=== PATIENT | female | born 1995 | race Caucasian/White ===

== ENCOUNTER 2021-06-19 16:53 | Outpatient (CLI) | payer OTHER, SELFPAY ==
--- NOTE | 2021-06-19 17:33 | XR_ITS ---
WS: [id number] Exam: XR abdomen 1V* [id number] Date/Time of Exam: 06/19/2021 5:34 PM Reason For Exam: abdominal pain, constipation, bloated abdomen No bowel obstruction or free air. Visualized organ margins appear normal. Signs of prior cholecystect talya. Moderate amount retained stool in right colon. Bony structures are intact. XR/XR abdomen 1V* [id number] IMPRESSION: 1. No acute abdominal process.
== END 2021-06-19 16:54 | disposition home or self-care (01) ==
PROVIDERS: PCP Nurse Practitioner Family; Visit Provider Nurse Practitioner Family
DX: R10.9 Unspecified abdominal pain (principal); K59.00 Constipation, unspecified; R14.0 Abdominal distension (gaseous)
CPT/HCPCS: 74018

== ENCOUNTER 2021-09-24 14:08 | Emergency (ER) | payer OTHER, SELFPAY ==
[2021-09-24 14:27] VITALS: BP 111/78; PULSE 95; RESP 18; TEMP 37.2; O2SAT 97; BMI 28.2
[2021-09-24 15:00] LABS: Urine Appearance Hazy (CLEAR); Urine Color Yellow (Yellow)
[2021-09-24 15:01] LABS: Add Urine Microscopic? YES; Bilirubin Urine Neg (Negative); Blood Urine Neg (Negative); Glucose Urine UA Norm (Normal); Ketones Urine Negative (Negative); Leukocyte Esterase Urine 2+ (Negative); Nitrate Urine Negative (Negative); Protein Urine Neg (Negative); Urobilinogen Urine Norm (Negative); pH Urine 7 (5-7)
[2021-09-24 15:02] LABS: Bacteria Urine 2+ /hpf; WBC Urine 15-25 /hpf (0-5)
[2021-09-24 15:03] LABS: Add Urine Culture? No
--- NOTE | 2021-09-24 15:44 | CTR_ITS ---
PROCEDURE INFORMATION: Exam: CT Abdomen And Pelvis Without Contrast Exam date and time: 09/24/2021 5:07 PM Age: 26 years old Clinical indication: Abdominal pain; Flank; Right lower quadrant (rlq); Additional info: Flank pain and rlq pain, PT allergic to contrast TECHNIQUE: Imaging protocol: Computed tomography of the abdomen and pelvis without contrast. Radiation optimization: All CT scans at this facility use at least one of these dose optimization techniques: automated exposure control; mA and/or kV adjustment per patient size (includes targeted exams where dose is matched to clinical indication); or iterative reconstruction. COMPARISON: CT Abdomen/Pelvis Renal [id number] 09/19/2016 3:56 AM RADIATION DOSE METRICS: Total DLP (mGy-cm): 1067.91 FINDINGS: Liver: Normal. No mass. Gallbladder and bile ducts: Interval cholecystectomy since the previous exam. Pancreas: Normal. No ductal dilation. Spleen: Normal. No splenomegaly. Adrenal glands: Normal. No mass. Kidneys and ureters: Normal. No hydronephrosis. Stomach and bowel: Unremarkable. No obstruction. No mucosal thickening. Appendix: No evidence of appendicitis. Intraperitoneal space: Unremarkable. No free air. No significant fluid collection. Vasculature: One or more calcified pelvic phleboliths. Lymph nodes: Unremarkable. No enlarged lymph nodes. Urinary bladder: Unremarkable as visualized. Reproductive: Unremarkable as visualized. Bones/joints: Unremarkable. No acute fracture. Soft tissues: Unremarkable. CT/CT kidney stone [id number] IMPRESSION: Interval cholecystectomy since the previous exam.
--- NOTE | 2021-09-24 15:45 | W.ED.ABDPA2 ---
HPI - Abdominal Pain General: Chief Complaint: Abdominal Pain Stated Complaint: abd pain Time Seen by Provider: 09/24/21 15:36 History of Present Illness: Patient comes in with right flank pain and right lower quadrant abdominal pain that radiates down into her leg. States the pain is constant, dull with episodes of sharp. States that it started 5 to 6 days ago. Associated with vomiting. Denies fever, diarrhea. Associated Symptoms: Reports nausea and vomiting; Denies dysuria and fever(s) Review of Systems Const: Denies: fever(s) or body aches Eyes: Denies: change in vision or blurry vision ENMT: Denies: throat pain or odynophagia Card: Denies: chest pain or palpitations Resp: Denies: dyspnea or productive cough GI: Reports: abdominal pain, nausea and vomiting : Reports: flank pain; Denies: dysuria Musc: Denies: neck pain or back pain Skin/Breast: Denies: rash or pruritus Neuro: Denies: headache(s) or numbness in extremities Psych: Denies: anxiety or change in appetite Endo: Denies: polyuria or excessive sweating PFSH ED PFSH: Medical History (Updated 09/24/21 @ 17:55 by Davian Sutton MD) Allergy to alpha-gal High risk medication use Immunization counseling Surgical History (Updated 08/16/21 @ 09:44 by Philip Dickson MD) H/O wrist surgery left History of cholecystectomy History of tonsillectomy and adenoidectomy Family History (Updated 08/16/21 @ 09:03 by Courtney Shafer LPN) Other Cancer Diabetes Denies family history of Rheumatoid arthritis Lupus CAD (coronary artery disease) Chronic kidney disease (CKD) Lung disease Stroke Social History (Updated 08/16/21 @ 09:05 by Courtney Shafer LPN) Smoking and tobacco status: never smoked Alcohol intake: never History of recent travel: No Physical Exam Const: COMMON NORMALS: no acute distress, patient oriented x3, healthy appearing and alert HENMT: COMMON NORMALS: normocephalic and atraumatic HEAD & SCALP: normocephalic and atraumatic Eye: COMMON NORMALS: Equal, round and reactive pupils present and EOMs intact bilaterally PUPIL: Yes Equal, round and reactive pupils present Neck/C-Spine: COMMON NORMALS: full ROM and supple Resp: COMMON NORMALS: normal respiratory effort, No retractions and No use of accessory muscles Cardio: COMMON NORMALS: regular rate and regular rhythm RATE: regular rate RHYTHM: regular rhythm GI: COMMON NORMALS: Normal to inspection, nondistended, normoactive bowel sounds present and Soft to palpation PALPATION: Yes Soft to palpation OTHER: RLQ ttp Back/Pelvis: COMMON NORMALS: thoracic and lumbar spine normal to inspection and no thoracic nor lumbar tenderness Extremity: COMMON NORMALS: normal to inspection and full ROM Neuro: COMMON NORMALS: patient oriented x3 SENSORIUM/ORIENTATION: Yes alert Psych: COMMON NORMALS: mental status grossly normal and cooperative Skin: COMMON NORMALS: no rashes or lesions noted and no wounds GENERAL SKIN EXAM: no rashes or lesions noted Course Vital Signs: Vital signs: Vital Signs Temperature 98.9 F 09/24/21 14:27 Pulse Rate 66 09/24/21 16:15 Respiratory Rate 16 09/24/21 16:15 Blood Pressure 111/75 09/24/21 16:15 Pulse Oximetry 100 09/24/21 16:15 MDM - Abdominal Pain Medical Decision Making Patient comes in with right flank pain and right lower quadrant abdominal pain that radiates down into her leg. States the pain is constant, dull with episodes of sharp. States that it started 5 to 6 days ago. Associated with vomiting. Denies fever, diarrhea. On physical exam she has right lower quadrant tenderness to palpation. She is allergic to IV contrast. Will check labs, CT renal, treat pain with IV Toradol, give IV fluids, and reassess. On reassessment I talked to the patient about the test results. Will discharge home at this time with precautions to return for worsening or changing symptoms. Lab Data : 09/24/21 16:09 09/24/21 16:09 Labs/Radiology: Radiology Impressions Abdomen/Pelvis CT 09/24/21 15:44 IMPRESSION: Interval cholecystectomy since the previous exam. Laboratory Results WBC 9.8 10^3/uL (4.0-10.0) 09/24/21 16:09 RBC 4.26 10^6/uL (4.1-5.3) 09/24/21 16:09 Hgb 11.0 g/dL (11.5-15.3) L 09/24/21 16:09 Hct 35.6 % (37.0-47.0) L 09/24/21 16:09 MCV 83.6 fl (81-99) 09/24/21 16:09 MCH 25.8 pg (28.0-34.0) L 09/24/21 16:09 MCHC 30.9 g/dL (30.0-36.0) 09/24/21 16:09 RDW 14.7 % (12.1-15.1) 09/24/21 16:09 Plt Count 340 10^3/cmm (130-400) 09/24/21 16:09 MPV 10.3 fL (7.4-10.4) 09/24/21 16:09 Neut % (Auto) 62.3 % 09/24/21 16:09 Lymph % (Auto) 29.9 % 09/24/21 16:09 [place] % (Auto) 6.5 % 09/24/21 16:09 Eos % (Auto) 0.8 % 09/24/21 16:09 Baso % (Auto) 0.2 % 09/24/21 16:09 Neut # (Auto) 6.12 10^3/uL (1.8-7.7) 09/24/21 16:09 Lymph # (Auto) 2.9 10^3/uL (0.8-4.8) 09/24/21 16:09 [place] # (Auto) 0.6 10^3/uL (0.2-0.9) 09/24/21 16:09 Eos # (Auto) 0.1 10^3/uL (0.0-0.8) 09/24/21 16:09 Baso # (Auto) 0.0 10^3/uL (0.0-0.1) 09/24/21 16:09 Nucleated RBC % (auto) 0 % 09/24/21 16:09 Nucleated RBCs # 0.0 /100WBC 09/24/21 16:09 Sodium 139 mmol/L (136-145) 09/24/21 16:09 Potassium 4.2 mmol/L (3.5-5.1) 09/24/21 16:09 Chloride 104 mmol/L (98-107) 09/24/21 16:09 Carbon Dioxide 24 mmol/L (22-29) 09/24/21 16:09 Anion Gap 15.2 (5-19) 09/24/21 16:09 BUN 7 mg/dL (6-20) 09/24/21 16:09 Creatinine 0.6 mg/dL (0.5-0.9) 09/24/21 16:09 GFR Calculation 119.9 mL/min (90-130) 09/24/21 16:09 Glucose 76 mg/dL (65-115) 09/24/21 16:09 Calculated Osmolality 285 mOsm/kg (285-295) 09/24/21 16:09 Calcium 8.9 mg/dL (8.5-10.5) 09/24/21 16:09 Total Bilirubin 0.3 mg/dL (0.15-1.2) 09/24/21 16:09 AST 13 U/L (0-32) 09/24/21 16:09 ALT 14 U/L (0-33) 09/24/21 16:09 Alkaline Phosphatase 69 IU/L (35-105) 09/24/21 16:09 Total Protein 6.6 g/dL (6.6-8.7) 09/24/21 16:09 Albumin 4.4 g/dL (3.5-5.2) 09/24/21 16:09 Globulin 2.2 g/dL (1.3-4.6) 09/24/21 16:09 HCG, Qual Negative (Negative) 09/24/21 14:40 Urine Color Yellow (Yellow) 09/24/21 14:40 Urine Appearance Hazy (CLEAR) A 09/24/21 14:40 Urine pH 7 (5-7) 09/24/21 14:40 Ur Specific [place] 1.010 (1.005-1.030) 09/24/21 14:40 Urine Protein Neg (Negative) 09/24/21 14:40 Urine Glucose (UA) Norm (Normal) 09/24/21 14:40 Urine Ketones Negative (Negative) 09/24/21 14:40 Urine Blood Neg (Negative) 09/24/21 14:40 Urine Nitrate Negative (Negative) 09/24/21 14:40 Urine Bilirubin Neg (Negative) 09/24/21 14:40 Urine Urobilinogen Norm mg/dL (Negative) 09/24/21 14:40 Ur Leukocyte Esterase 2+ (Negative) H 09/24/21 14:40 Urine RBC None /hpf (0-2) 09/24/21 14:40 Urine WBC 15-25 /hpf (0-5) H 09/24/21 14:40 Ur Squamous Epith Cells 10-15 /hpf (0-5) H 09/24/21 14:40 Amorphous Sediment Not Reportable 09/24/21 14:40 Urine Bacteria 2+ /hpf (NONE) H 09/24/21 14:40 Discharge Plan Discharge Patient Disposition: Home Clinical Impression: Abdominal pain Condition: Stable Prescriptions: No Action fluoxetine 20 mg tablet 30 mg PO DAILY 0RF prednisone 10 mg tablet See Rx Instructions PO .COMPLEX PRN (Reason: joint pain) Qty: 30 1RF Rx Instructions: take 3 tabs daily for 3days then 2 tabs daily x3days then 1 tab daily for 3 days then stop ondansetron HCl 4 mg tablet 4 mg PO Q6H Qty: 10 0RF Discharge Orders: Discharge ED (Routine); Ordered 09/24/21 Ordered By: Davian Sutton Referrals: JB BATISTA APRN [Primary Care Provider] - Patient Instructions: Abdominal Pain (ED) Coding Level of Care Code ED Certified Registered Nurse Anesthetist for Chg Fwd Exam Comprehensive
[2021-09-24] MEDS: ketorolac 30 mg/mL INJ 15 MG IVP (16:07)
[2021-09-24] MEDS: sodium chloride 0.9% 1,000 ML 999 ML IV (16:08)
[2021-09-24 16:15] VITALS: BP 111/75; PULSE 66; RESP 16; O2SAT 100
[2021-09-24 16:21] LABS: Basophils % 0.2 %; Eosinophils # 0.1 10^3/uL (0.0-0.8); Eosinophils % 0.8 %; Hematocrit 35.6 % (37.0-47.0); Lymphocytes # 2.9 10^3/uL (0.8-4.8); Lymphocytes % 29.9 %; Mean Corpuscular HGB Conc 30.9 g/dL (30.0-36.0); Mean Corpuscular Hemoglobin 25.8 pg (28.0-34.0); Mean Corpuscular Volume 83.6 fl (81-99); Mean Platelet Volume 10.3 fL (7.4-10.4); Monocytes # 0.6 10^3/uL (0.2-0.9); Monocytes % 6.5 %; Neutrophils # 6.12 10^3/uL (1.8-7.7); Neutrophils % 62.3 %; Nucleated Red Blood Cells % 0 %; Platelet Count 340 10^3/cmm (130-400); Red Blood Count 4.26 10^6/uL (4.1-5.3); Red Cell Distribution Width 14.7 % (12.1-15.1); White Blood Count 9.8 10^3/uL (4.0-10.0)
[2021-09-24 16:37] LABS: Alanine Aminotransferase 14 U/L (0-33); Albumin Level 4.4 g/dL (3.5-5.2); Alkaline Phosphatase 69 IU/L (35-105); Aspartate Amino Transferase 13 U/L (0-32); Blood Urea Nitrogen 7 mg/dL (6-20); Calcium 8.9 mg/dL (8.5-10.5); Carbon Dioxide 24 mmol/L (22-29); Chloride 104 mmol/L (98-107); Creatinine Clr Calc Pharmacy 149.7037; Globulin 2.2 g/dL (1.3-4.6); Glomerular Filtration Rate 119.9 mL/min (90-130); Glucose 76 mg/dL (65-115); Osmolality Calculated 285 mOsm/kg (285-295); Sodium 139 mmol/L (136-145); Total Bilirubin 0.3 mg/dL (0.15-1.2); Total Protein 6.6 g/dL (6.6-8.7)
[2021-09-24 16:39] LABS: HCG Qualitative Urine. Negative (Negative)
[2021-09-24 17:14] LABS: Anion Gap 15.2 (5-19); Potassium 4.2 mmol/L (3.5-5.1)
[2021-09-24 18:33] VITALS: BP 110/64; O2SAT 100
== END 2021-09-24 18:34 | disposition home or self-care (01) ==
PROVIDERS: Emergency Provider Emergency Medicine; PCP Nurse Practitioner Family
DX: R10.9 Unspecified abdominal pain (principal)
CPT/HCPCS: 74176; 80053; 81001; 81025; 85025; 96361; 96374; 99285; J1885; J7030

== ENCOUNTER 2022-03-06 16:28 | Outpatient (CLI) | payer OTHER, SELFPAY ==
--- NOTE | 2022-03-06 16:58 | XRR_ITS ---
PROCEDURE INFORMATION: Exam: XR Abdomen Exam date and time: 03/06/2022 5:13 PM Age: 26 years old Clinical indication: Nausea and vomiting; Abdominal pain; Generalized; Prior surgery; Surgery type: Gb; Additional info: Abdominal pain, nausea, vomiting TECHNIQUE: Imaging protocol: Radiologic exam of the abdomen. Views: 2 Views. Upright and supine views. COMPARISON: CT kidney stone [id number] 09/24/2021 5:07 PM FINDINGS: Gastrointestinal tract: Normal. No bowel dilation. Metallic surgical clips right upper quadrant consistent with cholecystectomy Intraperitoneal space: Normal. No free air. Bones/joints: Unremarkable for age. XR/XR abdomen min 2V [id number] IMPRESSION: 1. No acute GI abnormality. 2. Status post cholecystectomy
[2022-03-06 17:33] LABS: Basophils % 0.3 %; Eosinophils # 0.1 10^3/uL (0.0-0.8); Eosinophils % 0.7 %; Hematocrit 34.3 % (37.0-47.0); Hemoglobin 10.8 g/dL (11.5-15.3); Lymphocytes % 34.9 %; Mean Corpuscular HGB Conc 31.5 g/dL (30.0-36.0); Mean Corpuscular Hemoglobin 25.9 pg (28.0-34.0); Mean Corpuscular Volume 82.3 fl (81-99); Mean Platelet Volume 10.4 fL (7.4-10.4); Monocytes # 0.7 10^3/uL (0.2-0.9); Monocytes % 6.1 %; Neutrophils # 6.56 10^3/uL (1.8-7.7); Neutrophils % 57.6 %; Nucleated Red Blood Cells % 0 %; Platelet Count 336 10^3/cmm (130-400); Red Blood Count 4.17 10^6/uL (4.1-5.3); Red Cell Distribution Width 14.7 % (12.1-15.1); White Blood Count 11.4 10^3/uL (4.0-10.0)
[2022-03-06 17:53] LABS: Alanine Aminotransferase 19 U/L (0-33); Albumin Level 4.4 g/dL (3.5-5.2); Alkaline Phosphatase 72 U/L (35-105); Anion Gap 14.6 (5-19); Aspartate Amino Transferase 11 U/L (0-32); Blood Urea Nitrogen 8 mg/dL (6-20); Calcium 9.9 mg/dL (8.5-10.5); Carbon Dioxide 27 mmol/L (22-29); Chloride 105 mmol/L (98-107); Globulin 2.8 g/dL (1.3-4.6); Glomerular Filtration Rate 119.9 mL/min (90-130); Glucose 84 mg/dL (65-115); Osmolality Calculated 294 mOsm/kg (285-295); Potassium 3.6 mmol/L (3.5-5.1); Sodium 143 mmol/L (136-145); Total Bilirubin 0.2 mg/dL (0.15-1.2); Total Protein 7.2 g/dL (6.6-8.7)
== END 2022-03-06 16:29 | disposition home or self-care (01) ==
PROVIDERS: PCP Nurse Practitioner Family; Visit Provider Nurse Practitioner Family
DX: R10.9 Unspecified abdominal pain (principal); R11.2 Nausea with vomiting, unspecified; Z90.49 Acquired absence of other specified parts of digestive tract
CPT/HCPCS: 36415; 74019; 80053; 85025

== ENCOUNTER 2022-03-08 17:57 | Emergency (ER) | payer OTHER, SELFPAY ==
[2022-03-08 18:14] VITALS: BP 142/86; PULSE 80; RESP 18; TEMP 37.2; O2SAT 100; BMI 27.4
--- NOTE | 2022-03-08 19:23 | W.ED.ABDPA2 ---
HPI - Abdominal Pain General: Chief Complaint: Abdominal Pain Stated Complaint: abd pain Time Seen by Provider: 03/08/22 19:19 Source: patient Mode of arrival: ambulatory History of Present Illness: 26-year-old female presents emergency room complaining of intermittent right upper quadrant pain for the last 6 months or morning. She been seen for it several times persistently having pain states has been getting worse the last several days.'s associated with nausea or vomiting. She denies any medic easy melena hematemesis or coffee-ground emesis no dysuria urgency or frequency or hematuria. She previously had a cholecystectomy he states it is began after the cholecystectomy. Patient was seen in September 2021 at this ER with complaints of abdominal pain at that point he had a CT which was unremarkable. she has not noticed anything that exacerbates or relieves the pain. MD elicited complaint: abdominal pain Pertinent past history: other (Previous cholecystectomy) Onset (ago): month(s) (6) Pain Consistency: intermittent Location: RUQ Severity: moderate Quality: cramping Radiation: none Migration to: no migration Exacerbating factors: nothing Relieving factors: nothing Associated Symptoms: Reports GI cramping, poor appetite and vomiting; Denies anorexia, belching, bloating, change in bowel habits, change in stool character, chills, coffee ground emesis, constipation, diarrhea, dyspepsia, dysuria, excessive flatus, fever(s), heartburn, hematochezia, hematuria, hematemesis, fecal incontinence, loose stools, melena, nausea and syncope Review of Systems Const: Denies: fever(s), chills, fatigue or malaise ENMT: Denies: throat pain, ear or mastoid pain, nasal discharge or nasal congestion Card: Denies: chest pain, palpitations or syncope Resp: Denies: dyspnea, productive cough or non-productive cough GI: Reports: abdominal pain, vomiting and GI cramping; Denies: nausea, hematemesis, coffee ground emesis, heartburn, diarrhea, constipation, bloating, belching, excessive flatus, fecal incontinence, change in bowel habits, change in stool character, hematochezia or melena : Denies: dysuria or hematuria Skin/Breast: Denies: rash or pruritus PFS ED PFSH: Medical History (Updated 03/08/22 @ 20:56 by Dimitrios Hernandez DO) Allergy to alpha-gal High risk medication use Immunization counseling Surgical History (Updated 08/16/21 @ 09:44 by Philip Dickson MD) H/O wrist surgery left History of cholecystectomy History of tonsillectomy and adenoidectomy Family History (Updated 08/16/21 @ 09:03 by Courtney Shafer LPN) Other Cancer Diabetes Denies family history of Rheumatoid arthritis Lupus CAD (coronary artery disease) Chronic kidney disease (CKD) Lung disease Stroke Social History (Updated 08/16/21 @ 09:05 by Courtney Shafer LPN) Smoking and tobacco status: never smoked Alcohol intake: never History of recent travel: No Physical Exam Const: COMMON NORMALS: no acute distress GENERAL APPEARANCE: cooperative and comfortable ORIENTATION/CONSCIOUSNESS: Yes awake, Yes oriented to person, Yes oriented to place and Yes oriented to time HENMT: COMMON NORMALS: normocephalic, atraumatic, hearing grossly normal bilaterally, external ears normal, EAC's normal, TM's normal bilaterally, Normal nasal mucous membranes and turbinates present, moist oral mucous membranes and oropharynx normal HEAD & SCALP: normocephalic and atraumatic NOSE: Normal nasal mucous membranes and turbinates present EXTERNAL EAR: Yes external ears normal EXTERNAL AUDITORY CANAL: EAC's normal TYMPANIC MEMBRANE: TM's normal bilaterally Eye: COMMON NORMALS: Equal, round and reactive pupils present, EOMs intact bilaterally, conjunctivae normal and no scleral icterus CONJUNCTIVA: Yes conjunctivae normal PUPIL: Yes Equal, round and reactive pupils present Neck/C-Spine: COMMON NORMALS: full ROM, no lymphadenopathy, supple and no JVD Lymph: LYMPHATIC: no lymphadenopathy noted and no lymphedema noted Resp: COMMON NORMALS: normal respiratory effort, No retractions, No use of accessory muscles and clear to auscultation bilaterally AUSCULTATION: clear to auscultation bilaterally Cardio: COMMON NORMALS: no JVD, regular rate, regular rhythm and No murmurs present (Cardio) RATE: regular rate RHYTHM: regular rhythm GI: COMMON NORMALS: Soft to palpation and No hepatosplenomegaly present AUSCULTATION: Yes normoactive bowel sounds PALPATION: Yes Soft to palpation, No Tenderness to palpation present (GI), No Guarding due to palpation present (GI) and Yes No hepatosplenomegaly present Extremity: COMMON NORMALS: normal to inspection, capillary refill normal, no clubbing, cyanosis or edema, no calf tenderness and no pedal edema Neuro: SENSORIUM/ORIENTATION: Yes oriented to person, Yes oriented to place and Yes oriented to time Skin: COMMON NORMALS: no rashes or lesions noted GENERAL SKIN EXAM: no rashes or lesions noted Course Vital Signs: Vital signs: Vital Signs Temperature 99 F 03/08/22 18:14 Pulse Rate 78 03/08/22 20:35 Respiratory Rate 16 03/08/22 20:35 Blood Pressure 121/83 03/08/22 20:35 Pulse Oximetry 99 03/08/22 20:35 Oxygen Delivery Me thod 03/08/22 20:35 MDM - Abdominal Pain Medical Decision Making Exam and labs unremarkable. Patient may benefit from further evaluation on outpatient basis with endoscopy or even possible HIDA scan. Promethazine to use as needed also start omeprazole 20 mg p.o. daily follow-up with primary care return is further problems. No emergent condition found at this time. No evidence of acute appendicitis cholelithiasis bowel obstruction or ongoing pelvic issues. Medical Records I reviewed the patient's medical records. Lab Data I reviewed the patient's lab results. 03/08/22 18:59 03/08/22 18:59 Labs/Radiology: Laboratory Results WBC 10.9 10^3/uL (4.0-10.0) H 03/08/22 18:59 RBC 4.47 10^6/uL (4.1-5.3) 03/08/22 18:59 Hgb 11.3 g/dL (11.5-15.3) L 03/08/22 18:59 Hct 36.8 % (37.0-47.0) L 03/08/22 18:59 MCV 82.3 fl (81-99) 03/08/22 18:59 MCH 25.3 pg (28.0-34.0) L 03/08/22 18:59 MCHC 30.7 g/dL (30.0-36.0) 03/08/22 18:59 RDW 14.7 % (12.1-15.1) 03/08/22 18:59 Plt Count 343 10^3/cmm (130-400) 03/08/22 18:59 MPV 10.0 fL (7.4-10.4) 03/08/22 18:59 Neut % (Auto) 61.3 % 03/08/22 18:59 Lymph % (Auto) 32.0 % 03/08/22 18:59 [place] % (Auto) 5.0 % 03/08/22 18:59 Eos % (Auto) 1.1 % 03/08/22 18:59 Baso % (Auto) 0.2 % 03/08/22 18:59 Neut # (Auto) 6.68 10^3/uL (1.8-7.7) 03/08/22 18:59 Lymph # (Auto) 3.5 10^3/uL (0.8-4.8) 03/08/22 18:59 [place] # (Auto) 0.5 10^3/uL (0.2-0.9) 03/08/22 18:59 Eos # (Auto) 0.1 10^3/uL (0.0-0.8) 03/08/22 18:59 Baso # (Auto) 0.0 10^3/uL (0.0-0.1) 03/08/22 18:59 Nucleated RBC % (auto) 0 % 03/08/22 18:59 Nucleated RBCs # 0.0 /100WBC 03/08/22 18:59 Sodium 140 mmol/L (136-145) 03/08/22 18:59 Potassium 3.4 mmol/L (3.5-5.1) L 03/08/22 18:59 Chloride 105 mmol/L (98-107) 03/08/22 18:59 Carbon Dioxide 24 mmol/L (22-29) 03/08/22 18:59 Anion Gap 14.4 (5-19) 03/08/22 18:59 BUN 6 mg/dL (6-20) 03/08/22 18:59 Creatinine 0.6 mg/dL (0.5-0.9) 03/08/22 18:59 GFR Calculation 119.9 mL/min (90-130) 03/08/22 18:59 Glucose 84 mg/dL (65-115) 03/08/22 18:59 Calculated Osmolality 287 mOsm/kg (285-295) 03/08/22 18:59 Calcium 9.3 mg/dL (8.5-10.5) 03/08/22 18:59 Total Bilirubin 0.3 mg/dL (0.15-1.2) 03/08/22 18:59 AST 13 U/L (0-32) 03/08/22 18:59 ALT 20 U/L (0-33) 03/08/22 18:59 Alkaline Phosphatase 75 U/L (35-105) 03/08/22 18:59 Total Protein 7.7 g/dL (6.6-8.7) 03/08/22 18:59 Albumin 4.6 g/dL (3.5-5.2) 03/08/22 18:59 Globulin 3.1 g/dL (1.3-4.6) 03/08/22 18:59 Lipase 18 U/L (13-60) 03/08/22 18:59 HCG, Qual Negative (Negative) 03/08/22 18:59 Urine Color Yellow (Yellow) 03/08/22 19:49 Urine Appearance Hazy (CLEAR) A 03/08/22 19:49 Urine pH 6 (5-7) 03/08/22 19:49 Ur Specific [place] 1.020 (1.005-1.030) 03/08/22 19:49 Urine Protein Neg (Negative) 03/08/22 19:49 Urine Glucose (UA) Norm (Normal) 03/08/22 19:49 Urine Ketones Negative (Negative) 03/08/22 19:49 Urine Blood 2+ (Negative) H 03/08/22 19:49 Urine Nitrate Negative (Negative) 03/08/22 19:49 Urine Bilirubin Neg (Negative) 03/08/22 19:49 Urine Urobilinogen Norm mg/dL (Negative) 03/08/22 19:49 Ur Leukocyte Esterase 1+ (Negative) H 03/08/22 19:49 Urine RBC 0-4 /hpf (0-2) H 03/08/22 19:49 Urine WBC None /hpf (0-5) 03/08/22 19:49 Ur Squamous Epith Cells 0-4 /hpf (0-5) H 03/08/22 19:49 Amorphous Sediment Not Reportable 03/08/22 19:49 Urine Bacteria 1+ /hpf (NONE) H 03/08/22 19:49 Discharge Plan Discharge Patient Disposition: Home Clinical Impression: Abdominal pain Condition: Stable Prescriptions: New promethazine 25 mg tablet 25 mg PO Q6H PRN (Reason: nausea and vomiting) Qty: 20 0RF No Action fluoxetine 20 mg tablet 30 mg PO DAILY prednisone 10 mg tablet See Rx Instructions PO .COMPLEX PRN (Reason: joint pain) Qty: 30 1RF Rx Instructions: take 3 tabs daily for 3days then 2 tabs daily x3days then 1 tab daily for 3 days then stop ondansetron HCl 4 mg tablet 4 mg PO Q6H Qty: 10 0RF Cipro 250 mg tablet 250 mg PO Q12H Qty: 6 0RF Discharge Orders: Discharge ED (Routine); Ordered 03/08/22 Ordered By: Dimitrios Hernandez Referrals: JB BATISTA APRN [Primary Care Provider] - Discharge Diet: As Directed Discharge Activity: Increase activity as tolerated Patient Instructions: Abdominal Pain (ED), Opioid Safety, Pain Management Activity Restrictions/Additional Instructions: He was seen for chronic abdominal pain. Your labs did not have any significant abnormalities. Would recommend that you follow-up with your primary care doctor to evaluate for sphincter of Oddi disease. Coding Level of Care Code ED Recreational Specialist for [facility]
[2022-03-08 19:25] LABS: Basophils % 0.2 %; Eosinophils # 0.1 10^3/uL (0.0-0.8); Eosinophils % 1.1 %; Hematocrit 36.8 % (37.0-47.0); Hemoglobin 11.3 g/dL (11.5-15.3); Lymphocytes # 3.5 10^3/uL (0.8-4.8); Mean Corpuscular HGB Conc 30.7 g/dL (30.0-36.0); Mean Corpuscular Hemoglobin 25.3 pg (28.0-34.0); Mean Corpuscular Volume 82.3 fl (81-99); Monocytes # 0.5 10^3/uL (0.2-0.9); Neutrophils # 6.68 10^3/uL (1.8-7.7); Neutrophils % 61.3 %; Nucleated Red Blood Cells % 0 %; Platelet Count 343 10^3/cmm (130-400); Red Blood Count 4.47 10^6/uL (4.1-5.3); Red Cell Distribution Width 14.7 % (12.1-15.1); White Blood Count 10.9 10^3/uL (4.0-10.0)
[2022-03-08 19:46] LABS: HCG, Serum Qual Negative (Negative)
[2022-03-08 19:54] LABS: Alanine Aminotransferase 20 U/L (0-33); Albumin Level 4.6 g/dL (3.5-5.2); Alkaline Phosphatase 75 U/L (35-105); Anion Gap 14.4 (5-19); Aspartate Amino Transferase 13 U/L (0-32); Blood Urea Nitrogen 6 mg/dL (6-20); Calcium 9.3 mg/dL (8.5-10.5); Carbon Dioxide 24 mmol/L (22-29); Chloride 105 mmol/L (98-107); Creatinine Clr Calc Pharmacy 147.6867; Globulin 3.1 g/dL (1.3-4.6); Glomerular Filtration Rate 119.9 mL/min (90-130); Glucose 84 mg/dL (65-115); Lipase 18 U/L (13-60); Osmolality Calculated 287 mOsm/kg (285-295); Potassium 3.4 mmol/L (3.5-5.1); Sodium 140 mmol/L (136-145); Total Bilirubin 0.3 mg/dL (0.15-1.2); Total Protein 7.7 g/dL (6.6-8.7)
[2022-03-08 20:25] LABS: Add Urine Culture? No; Add Urine Microscopic? YES; Bacteria Urine 1+ /hpf; Bilirubin Urine Neg (Negative); Blood Urine 2+ (Negative); Glucose Urine UA Norm (Normal); Ketones Urine Negative (Negative); Leukocyte Esterase Urine 1+ (Negative); Nitrate Urine Negative (Negative); Protein Urine Neg (Negative); RBC Urine 0-4 /hpf (0-2); Squamous Epithelial Cell Urine 0-4 /hpf (0-5); Urine Appearance Hazy (CLEAR); Urine Color Yellow (Yellow); Urobilinogen Urine Norm (Negative); pH Urine 6 (5-7)
[2022-03-08 20:35] VITALS: BP 121/83; PULSE 78; RESP 16; O2SAT 99
== END 2022-03-08 21:15 | disposition home or self-care (01) ==
PROVIDERS: Physician Assistant; Emergency Provider Family Medicine; PCP Nurse Practitioner Family
DX: R10.9 Unspecified abdominal pain (principal)
CPT/HCPCS: 36415; 80053; 81001; 83690; 84703; 85025; 99283

== ENCOUNTER 2022-03-14 16:49 | Outpatient (CLI) | payer OTHER, SELFPAY ==
[2022-03-14 17:16] LABS: Add Urine Microscopic? NO; Charge for UA Resulting for Rev
[2022-03-14 18:05] LABS: Bilirubin Urine Neg (Negative); Blood Urine Neg (Negative); Glucose Urine UA Norm (Normal); Ketones Urine Negative (Negative); Leukocyte Esterase Urine Negative (Negative); Nitrate Urine Negative (Negative); Protein Urine Neg (Negative); Specific Gravity, Urine 1.025 (1.005-1.030); Urine Appearance Clear (CLEAR); Urine Color Yellow (Yellow); Urobilinogen Urine Norm (Negative); pH Urine 6 (5-7)
== END 2022-03-14 16:50 | disposition home or self-care (01) ==
PROVIDERS: PCP Nurse Practitioner Family; Visit Provider Nurse Practitioner Family
DX: R82.90 Unspecified abnormal findings in urine (principal)
CPT/HCPCS: 36415; 81003; 87086

== ENCOUNTER 2022-10-23 23:13 | Emergency (ER) | payer OTHER, SELFPAY ==
[2022-10-23 23:18] VITALS: BP 141/94; PULSE 101; RESP 17; TEMP 36.8; O2SAT 97; BMI 27.1
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
[2022-10-24] MEDS: acetaminophen 500 mg Tablet 1000 MG PO (00:08)
[2022-10-24 01:01] VITALS: BP 141/94; PULSE 101; RESP 17; TEMP 36.8; O2SAT 97
== END 2022-10-24 01:02 | disposition home or self-care (01) ==
PROVIDERS: Emergency Provider Nurse Practitioner Family; PCP Nurse Practitioner Family
DX: S43.101A Unspecified dislocation of right acromioclavicular joint, initial encounter (principal); S40.021A Contusion of right upper arm, initial encounter; Y04.2XXA Assault by strike against or bumped into by another person, initial encounter; Y04.1XXA Assault by human bite, initial encounter; Y07.47 Parental sibling, perpetrator of maltreatment and neglect
CPT/HCPCS: 70150; 73030; 99283

== ENCOUNTER → 2022-11-26 16:13 | Outpatient (BNVA) | payer OTHER, SELFPAY | PROVIDERS: PCP Nurse Practitioner Family; Visit Provider Podiatrist Foot & Ankle Surgery | DX: S92.354A Nondisplaced fracture of fifth metatarsal bone, right foot, initial encounter for closed fracture; X50.9XXA Other and unspecified overexertion or strenuous movements or postures, initial encounter | CPT/HCPCS: 73630 ==

== ENCOUNTER → 2022-12-10 15:23 | Outpatient (BNVA) | payer OTHER, SELFPAY | PROVIDERS: PCP Nurse Practitioner Family; Visit Provider Podiatrist Foot & Ankle Surgery | DX: S90.31XA Contusion of right foot, initial encounter; M65.9 Synovitis and tenosynovitis, unspecified; W19.XXXA Unspecified fall, initial encounter; Y92.511 Restaurant or cafe as the place of occurrence of the external cause | CPT/HCPCS: 73630 ==

== ENCOUNTER 2022-12-10 16:01 | Outpatient (CLI) | payer OTHER, SELFPAY | END 2022-12-10 16:02 | disposition home or self-care (01) | LOC: SPT 16:02 | PROVIDERS: PCP Nurse Practitioner Family; Visit Provider Podiatrist Foot & Ankle Surgery | DX: Z46.89 Encounter for fitting and adjustment of other specified devices (principal); S99.929D Unspecified injury of unspecified foot, subsequent encounter; S90.31XD Contusion of right foot, subsequent encounter; X58.XXXD Exposure to other specified factors, subsequent encounter | CPT/HCPCS: 97760; L1902 ==

== ENCOUNTER → 2022-12-18 09:04 | Outpatient (BNVA) | payer OTHER, SELFPAY | PROVIDERS: PCP Nurse Practitioner Family; Visit Provider Student in an Organized Health Care Education/Training Program | DX: S49.91XA Unspecified injury of right shoulder and upper arm, initial encounter; Y04.2XXA Assault by strike against or bumped into by another person, initial encounter; X58.XXXA Exposure to other specified factors, initial encounter | CPT/HCPCS: 73030 ==

== ENCOUNTER 2023-01-02 07:48 | Outpatient (CLI) | payer OTHER, SELFPAY ==
--- NOTE | 2023-01-02 08:00 | MR_ITS ---
WS: [id number] MRI BRAIN WITHOUT CONTRAST HISTORY: G43.711 - Chronic migraine without aura, intractable, wit... COMPARISON: None available. TECHNIQUE: Diffusion imaging, multiplanar T1, T2 and FLAIR imaging obtained. No evidence for acute infarct or hemorrhage. Garcia-white matter differentiation is normal. No remote or acute infarcts are volume loss. Normal temporal and hippocampal formations. Ventricles and extra-axial spaces are normal. No inferior displacement of cerebellar tonsils. The sella turcica and pituitary gland are unremarkabl e. Dural venous sinuses and [place] of [place] demonstrate no abnormality on this unenhanced studies. Paranasal sinuses: Clear. Mastoid air cells: Normal. Calvarium and scalp: Intact. IMPRESSION: 1. Unremarkable noncontrast MRI brain. No prior infarct or significant microvascular disease. 2. Normal temporal and hippocampal formations. 3. Normal ventricles.
== END 2023-01-02 07:49 | disposition home or self-care (01) ==
LOC: RAD 07:48
PROVIDERS: Visit Provider Specialist
DX: G43.711 Chronic migraine without aura, intractable, with status migrainosus (principal); F07.81 Postconcussional syndrome
CPT/HCPCS: 70551

== ENCOUNTER 2023-01-17 12:28 | Outpatient (RCR) | payer OTHER, SELFPAY | END 2023-01-31 23:59 | disposition home or self-care (01) | LOC: SPT 12:28 | PROVIDERS: PCP Nurse Practitioner Family; Visit Provider Student in an Organized Health Care Education/Training Program | DX: M25.511 Pain in right shoulder (principal) | CPT/HCPCS: 97110; 97161 ==

== ENCOUNTER 2023-02-06 10:01 | Outpatient (CLI) | payer OTHER, SELFPAY ==
--- NOTE | 2023-02-06 10:15 | MR_ITS ---
WS: [id number] MRI RIGHT SHOULDER NONCONTRAST TECHNIQUE: Sagittal T2, coronal T1, T2 and proton density imaging. Axial gradient PDE imaging. CLINICAL INFORMATION: right shoulder injury COMPARISON: None. FINDINGS: Mild degenerative edema at the AC joint. Moderate downsloping acromion with slight impingement distal supraspinatus. Subacromial spurring. Trace subacromial fluid. Impingement on the distal supraspinatu s with tendinopathy. Normal infraspinatus. Normal teres minor. Thinning of the subscapularis tendon with increased signal either due to tendinopathy or intrasubstance partial tear. A few prominent lymph nodes in the RIGHT a xilla likely reactive. Normal biceps tendon the bicipital groove. Normal bone marrow signal in the humerus and glenoid. Norm al visualized labrum. Biceps labral anchor appears intact. Intra-articular biceps tendon appears inta ct. IMPRESSION: 1. Mild edema at the AC joint with a moderate downsloping the acromion. Subacromial spurring with im pingement of distal supraspinatus. 2. Tendinopathy distal supraspinatus. 3. Thinning of the subscapularis tendon with increased signal either due to tendinopathy or intrasub stance partial tear. 4. Biceps tendon appears intact within the bicipital groove. 5. No other suspicious findings.
== END 2023-02-06 10:02 | disposition home or self-care (01) ==
LOC: RAD 10:02
PROVIDERS: PCP Nurse Practitioner Family; Visit Provider Student in an Organized Health Care Education/Training Program
DX: S49.90XA Unspecified injury of shoulder and upper arm, unspecified arm, initial encounter (principal); X58.XXXA Exposure to other specified factors, initial encounter; M75.41 Impingement syndrome of right shoulder; M67.813 Other specified disorders of tendon, right shoulder
CPT/HCPCS: 73221

== ENCOUNTER → 2023-05-01 15:05 | Outpatient (BNVA) | payer OTHER, MEDICAID, SELFPAY | PROVIDERS: PCP Nurse Practitioner Family; Visit Provider Podiatrist Foot & Ankle Surgery | DX: M25.871 Other specified joint disorders, right ankle and foot | CPT/HCPCS: 73630 ==

== ENCOUNTER → 2023-05-14 07:36 | Outpatient (BNVA) | payer OTHER, MEDICAID, SELFPAY | PROVIDERS: PCP Nurse Practitioner Family; Visit Provider Podiatrist Foot & Ankle Surgery | DX: M25.871 Other specified joint disorders, right ankle and foot (principal) | CPT/HCPCS: 73630 ==

== ENCOUNTER → 2023-05-28 07:22 | Outpatient (BNVA) | payer OTHER, MEDICAID, SELFPAY | PROVIDERS: PCP Nurse Practitioner Family; Visit Provider Podiatrist Foot & Ankle Surgery | DX: M25.871 Other specified joint disorders, right ankle and foot (principal) | CPT/HCPCS: 73630 ==

== ENCOUNTER → 2023-08-06 07:54 | Outpatient (BNVA) | payer OTHER, SELFPAY | PROVIDERS: PCP Nurse Practitioner Family; Visit Provider Student in an Organized Health Care Education/Training Program | DX: M54.2 Cervicalgia; M67.441 Ganglion, right hand | CPT/HCPCS: 73110 ==

== ENCOUNTER 2023-08-30 09:17 | Outpatient (CLI) | payer OTHER, SELFPAY ==
--- NOTE | 2023-08-30 09:30 | MR_ITS ---
WS: [id number] MRI CERVICAL SPINE NONCONTRAST HISTORY: R20.0 - Anesthesia of skin COMPARISON: None available. Technique: Multiplanar, multisequence noncontrast imaging of the cervical spine. Normal cervical alignment with no compression fracture or significant disc space narrowing. Signal within the cervical cord is normal. Visualized posterior fossa is unremarkable. Craniocervical junction, C1 and C2 relationship, odontoid process and soft tissues are normal. C2-C3: Proximal RIGHT vertebral osteophyte. No high-grade stenosis. C3-C4: Small RIGHT vertebral osteophytes. No significant stenosis. C4-C5: Normal. C5-C6: Normal. C6-C7: Normal. C7-T1: Normal. Paraspinal soft tissue are normal. MR/MR cervical spin wo con* [id number] IMPRESSION: 1. No high-grade central or foraminal stenosis. 2. Small vertebral body osteophytes on the RIGHT at C2-3 and C3-4 without sign ificant stenosis.
== END 2023-08-30 09:18 | disposition home or self-care (01) ==
LOC: RAD 09:18
PROVIDERS: PCP Nurse Practitioner Family; Visit Provider Specialist
DX: R20.0 Anesthesia of skin (principal); M25.78 Osteophyte, vertebrae
CPT/HCPCS: 72141

== ENCOUNTER 2023-09-12 09:07 | Day surgery (SDC) | payer OTHER, SELFPAY ==
[2023-09-12 09:24] VITALS: BP 117/79; PULSE 78; RESP 17; TEMP 36.9; O2SAT 97; BMI 24.3
[2023-09-12] MEDS: scopolamine 1.5 Patch 1 PATCH TRANSDERMA (09:41)
[2023-09-12] MEDS: ketorolac 30 mg/mL INJ IVP (09:41)
[2023-09-12] MEDS: acetaminophen 1,000 MG/100 ML PIGGYBACK 400 MG IV (09:41)
--- NOTE | 2023-09-12 09:55 | ANES.PREANE2 ---
Pre-Anesthetic Assessment Height/Weight: Height 1.7 m Weight 70.307 kg Temp Pulse Resp BP Pulse Ox O2 Del Method 98.5 F 78 17 117/79 97 Room Air 09/12/23 09:24 09/12/23 09:24 09/12/23 09:24 09/12/23 09:24 09/12/23 09:24 09/12/23 09:25 Operation Date: 09/12/23 10:50 Proposed Procedures p right dorsal hand ganglion cyst excision(Right) - Vishal Zavala DO Last intake: Intake Last Liquid Date 09/11/23 Last Liquid Time 22:30 Last Solid Date 09/11/23 Last Solid Time 20:00 Exam alert, oriented x 3, clear to auscultation bilaterally and regular rate & rhythm Airway Submandibular: within normal limits Cervical ROM: within normal limits Mallampati: Class I Pulmonary None reported CV/HEM None reported None reported Hepatic None reported GI None reported Metabolic None reported Musc/skel None reported Anesthetic Plan ASA status: 1 Anesthesia: MAC Risk of > 500 ml blood loss (7ml/kg in children): No Medications/Allergies Home Medications Medication Instructions Recorded Confirmed Last Taken Type amitriptyline 25 mg tablet 25 mg PO DAILY #30 tabs 12/04/22 09/11/23 09/04/23 Rx desvenlafaxine 50 mg 100 mg PO DAILY 12/04/22 09/11/23 09/10/23 History tablet,extended release 24 hr ASO to right #1 ea 12/10/22 09/03/23 Unknown Rx alprazolam 0.5 mg tablet 0.5 mg PO PRN PRN Anxiety 01/17/23 09/12/23 09/12/23 History Allergies Allergy/AdvReac Type Severity Reaction Status Date / Time Alpha-Gal Allergy ALGY-Anaphy Verified 09/11/23 12:43 (Stfuancwz-Mbbfj-0,3-Gala laxis [facility] Anesthesia Medical History Immunization counseling High risk medication use Allergy to alpha-gal Surgical History History of tonsillectomy and adenoidectomy H/O wrist surgery left History of cholecystectomy Family History Other Cancer Diabetes Denies family history of Rheumatoid arthritis Lupus CAD (coronary artery disease) Chronic kidney disease (CKD) Lung disease Stroke Social History Smoking and tobacco/nicotine status: unknown if used tobacco/nicotine Alcohol intake: never Data Anesthesia Cardiac Studies: No Data to Display
[2023-09-12] MEDS: sodium chloride 0.9% 1,000 ML 30 ML IV (10:15)
--- NOTE | 2023-09-12 10:47 | W.PM.OPSFHP ---
Same Day Surgery H&P Indication for Procedure/HPI DATE OF PROCEDURE: September 12, 2023 CHIEF COMPLAINT/INDICATIONFOR SURGICAL PROCEDURE: Right dorsal hand/wrist ganglion cyst PREOP DIAGNOSIS: Right dorsal hand/wrist ganglion cyst PLANNED PROCEDURE: Operation Date: 09/12/23 10:50 Proposed Procedures p right dorsal hand ganglion cyst excision(Right) - Vishal Zavala DO Medications/Allergies* Home Medications Medication Instructions Recorded Confirmed Type desvenlafaxine 50 mg 100 mg PO DAILY 12/04/22 09/11/23 History tablet,extended release 24 hr alprazolam 0.5 mg tablet 0.5 mg PO PRN PRN Anxiety 01/17/23 09/12/23 History Allergies/Adverse Reactions Allergy/AdvReac Type Severity Reaction Status Date / Time Alpha-Gal Allergy ALGY-Anaphy Verified 09/11/23 12:43 (Amfnchtiw-Nehaz-5,3-Gala laxis Pertinent History/Comorbid Conditions* Medical History (Updated 08/27/23 @ 08:16 by Vishal Zavala DO) Immunization counseling High risk medication use Allergy to alpha-gal Surgical History (Updated 08/16/21 @ 09:44 by Philip Dickson MD) History of tonsillectomy and adenoidectomy H/O wrist surgery left History of cholecystectomy Family History (Updated 08/16/21 @ 09:03 by Courtney Shafer LPN) Diabetes Cancer Denies family history of Rheumatoid arthritis Lupus CAD (coronary artery disease) Chronic kidney disease (CKD) Lung disease Stroke Social History Smoking and tobacco/nicotine status: unknown if used tobacco/nicotine Alcohol intake: never Pertinent Exam Findings alert, oriented x 3, operative site marked and procedure specific exam findings Please refer to detailed orthopedic examination on 08/05/2023: Right hand examination: Patient has neck pain as well as positive Spurling's right upper extremity Examination of the right hand patient is able to make a fist as well as open and close digits, she does have a palpable dorsal hand/ganglion cyst but soft mobile is more prominent with wrist flexion she does have pain with end ranges of motion of wrist flexion and extension. Mildly positive Tinel's over the area. Cyst is significantly tender to palpation Recommendations Surgery/Procedure today Other Plans: Plan to proceed to the OR today for right hand/wrist dorsal ganglion cyst excision. Patient understands and Zetts procedure risk benefits complication alternatives of surgery and through shared decision-making was proceed surgical invention all questions answered at this time. Coding Level of Care Code Acute Code for g Becky
[2023-09-12] MEDS: ceFAZolin 2,000 MG in sodium chloride 0.9% (plus) 50 ML 100 MG IV (10:55)
[2023-09-12] MEDS: ROPivacaine 0.5% SDV 30 mL 25 MG INJECTION (11:04)
[2023-09-12] MEDS: sodium bicarbonate 4.2% 0.5 mEq/mL SDV 5mL 2 MEQ INTRADERMA (11:04)
[2023-09-12] MEDS: lidocaine-epi 1% PF 1:200,000 30 mL SDV 5 ML INJECTION (11:04)
[2023-09-12 11:46] VITALS: BP 142/63; PULSE 58; RESP 18; TEMP 36.1; O2SAT 99
--- NOTE | 2023-09-12 11:51 | W.PM.BPON ---
Date of Procedure: [09/12/2023] Surgeon: Vishal Zavala DO Quality Tester(s): None Procedure(s) performed: Right dorsal wrist ganglion cyst excision Findings of the procedure(s): Found to have a right wrist dorsal ganglion cyst underwent procedure as planned without issues or complications Estimated blood loss: 1 mL Specimen(s) removed: Dorsal ganglion cyst excised to the right wrist and sent for pathology Post-operative diagnosis: Right dorsal wrist ganglion cyst
[2023-09-12 11:52] VITALS: BP 118/88; PULSE 56; RESP 18; O2SAT 98
--- NOTE | 2023-09-12 11:52 | PM.OP ---
Operative Report Date of procedure: September 12, 2023 Surgeon: Vishal Zavala DO Procedure: Preop Dx: Right dorsal hand/wrist ganglion cyst Postop Dx: Same Procedure Right?dorsal?wrist?ganglion?cyst excision Specimens removed/disposition: Right?dorsal?wrist?ganglion?cyst excised and sent for pathology Surgeon: Vishal Zavala DO Estimated blood loss: 1mL Tourniquet time 15 minutes IV fluids: See anesthesia record Complications: None Findings: See operative report narrative Condition: stable Disposition: same day Brief History: Patient's been worked up in the outpatient setting and findings consistent with preoperative diagnosis.? Patient has a right?dorsal?wrist?ganglion?cyst.? Patient has attempted conservative treatment and this has become significantly painful.? .? We talked about treatment options as far as nonoperative and operative intervention.? At this point time patient like a more permanent solution in the lowest chance of recurrence and as result through shared decision making we agreed to proceed with a right?dorsal?hand/wrist?ganglion?cyst excision.? Patient understands risk benefits complication alternatives surgical nonsurgical treatment options.? Understanding risk of surgery patient agrees to proceed.? All questions answered.? Consent obtained in the office. Procedure: Patient seen evaluate in the preoperative holding area.? Consent was signed and reviewed with patient.? All questions were answered at that time.? Correct extremity was then marked.? Once seen evaluated by anesthesia patient was then brought back to the operative suite.? Patient was then placed in supine position all bony prominences well-padded patient was properly secured to the bed.? An armboard was then applied for the right upper extremity.? A nonsterile tourniquet was applied to the right upper extremity arm.? Patient then underwent anesthesia per the anesthesia department.? Once appropriately anesthetized the right upper extremity was then prepped and draped in standard orthopedic fashion.? Final timeout performed.? Patient received appropriate preoperative antibiotics. Under sterile aseptic technique I began with local anesthetic for my preplanned surgical site.? Then I utilized an Esmarch tourniquet to exsanguinate the right upper extremity to 250 mmHg Patient had a large soft mobile?ganglion?cyst which a incision was then centered longitudinally directly over the cyst over the?dorsal?aspect of the right wrist.? sharp scalpel incision was made through skin and subcutaneous tissue.? I then switched to dissection scissors and spread longitudinally to identify branches of the superficial radial nerve.? These were protected throughout the case.? I immediately encountered the?ganglion?cyst which was just distal to the extensor retinaculum and between the third and fourth?dorsal?compartments.? I then protected the tendons and identified the?ganglion?cyst subsequently dissected circumferentially all the way to the base which was connected to the?dorsal?capsule.? This was then transected at the base with bipolar electrocautery.? I did have to excise some of the?dorsal?capsule that communicated with the cyst this had a broad connection and cyst stalk to the?dorsal?capsule. I utilized bipolar electrocautery to to seal off the?dorsal?capsule and prevent any further cyst recurrence.? Cyst was then sent for pathology.? I then thoroughly irrigated the wound bed tourniquet was deflated.? Hemostasis was satisfactory with bipolar electrocautery.? I then closed the incision in layered fashion with 3-0 Vicryl suture subcutaneously and running stitch for skin.? Xeroform over the incisions 4 x 4's ABD soft roll and a volar splint was applied.? Patient was then awakened from anesthesia and taken back in stable condition. Disposition: Patient taken back in stable condition recovering well.? Patient will receive appropriate discharge instructions as well as pain medication postoperatively.? Patient placed in a volar splint.? We will follow-up with in the orthopedic office in 2 weeks.? Patient understands of any questions or concerns and contact the office.
[2023-09-12 11:56] VITALS: BP 107/58; PULSE 52; RESP 18; O2SAT 100
[2023-09-12 12:02] VITALS: BP 130/75; PULSE 52; RESP 17; O2SAT 100
--- NOTE | 2023-09-12 15:47 | ANE.PACU2 ---
Inpatient post-anesthesia follow up: Airway intact: Yes Vital signs: Temperature 97 F Pulse Rate 52 Respiratory Rate 17 Blood Pressure 130/75 Pulse Oximetry 100 Oxygen Delivery Me thod Room Air Oxygen Flow Rate Fraction of Inspir ed Oxygen Nausea and vomiting: No Pain level: controlled Mental status: Baseline Additional Comments: no apparent anesthetic complications noted
== END 2023-09-12 12:45 | disposition home or self-care (01) ==
PROVIDERS: PCP Nurse Practitioner Family; Visit Provider Student in an Organized Health Care Education/Training Program
PROC: (CPT 25111; principal; 2023-09-12 10:50)
DX: M67.431 Ganglion, right wrist (principal)
CPT/HCPCS: 25111; 88304; J0131; J0690; J1885; J2704; J2795; J7030

== ENCOUNTER 2023-10-09 08:05 | Outpatient (RCR) | payer OTHER, SELFPAY | END 2023-11-02 23:59 | disposition home or self-care (01) | LOC: SOT 08:05 | PROVIDERS: Visit Provider Student in an Organized Health Care Education/Training Program | DX: M67.431 Ganglion, right wrist (principal) | CPT/HCPCS: 97022; 97110; 97140; 97166 ==

== ENCOUNTER 2023-11-03 06:30 | Outpatient (RCR) | payer OTHER, SELFPAY | END 2023-12-02 23:59 | disposition home or self-care (01) | LOC: SOT 06:30 | PROVIDERS: Visit Provider Student in an Organized Health Care Education/Training Program | DX: M67.431 Ganglion, right wrist (principal) | CPT/HCPCS: 97022; 97110; G0283 ==

== ENCOUNTER 2023-11-18 08:21 | Outpatient (RCR) | payer OTHER, SELFPAY | END 2023-12-02 23:59 | disposition home or self-care (01) | LOC: SPT 08:21 | PROVIDERS: Visit Provider Specialist | DX: M54.2 Cervicalgia (principal) | CPT/HCPCS: 97110; 97161 ==

== ENCOUNTER 2023-12-03 06:00 | Outpatient (RCR) | payer OTHER, SELFPAY | END 2024-01-02 23:59 | disposition home or self-care (01) | LOC: SPT 06:00 | PROVIDERS: Visit Provider Specialist | DX: M54.2 Cervicalgia (principal) | CPT/HCPCS: 97110 ==

== ENCOUNTER 2024-01-01 06:00 | Outpatient (RCR) | payer OTHER, SELFPAY | END 2024-01-02 23:59 | disposition home or self-care (01) | LOC: SOT 06:00 | PROVIDERS: Visit Provider Specialist | DX: R20.0 Anesthesia of skin (principal); R20.2 Paresthesia of skin; M67.431 Ganglion, right wrist | CPT/HCPCS: 97110; 97166; 97530 ==

== ENCOUNTER 2024-01-03 06:00 | Outpatient (RCR) | payer OTHER, SELFPAY | END 2024-02-01 23:59 | disposition home or self-care (01) | LOC: SOT 06:00 | PROVIDERS: Visit Provider Specialist | DX: R20.0 Anesthesia of skin (principal) | CPT/HCPCS: 97110 ==

== ENCOUNTER 2024-01-10 08:37 | Outpatient (CLI) | payer OTHER, SELFPAY ==
--- NOTE | 2024-01-10 09:10 | XR_ITS ---
WS: [id number] XR chest 2V* [id number] REASON FOR EXAM: chest pain FINDINGS: The heart and mediastinum are within normal limits. Calcified granulomatous disease in both hemithoraces. No acute pulmonary parenchymal or pleural abnormality. Bony thorax is intact without significant abnormality. XR/XR chest 2V* [id number] IMPRESSION: No significant abnormality.
== END 2024-01-10 08:38 | disposition home or self-care (01) ==
PROVIDERS: PCP Nurse Practitioner Family; Visit Provider Nurse Practitioner Family
DX: R07.9 Chest pain, unspecified (principal); D71 Functional disorders of polymorphonuclear neutrophils
CPT/HCPCS: 71046

== ENCOUNTER 2024-01-13 09:44 | Outpatient (CLI) | payer OTHER, SELFPAY ==
--- NOTE | 2024-01-13 09:53 | US_ITS ---
WS: [id number] ULTRASOUND LEFT BREAST HISTORY: Left Breast Lump COMPARISON: 08/21/2018 TECHNIQUE: 2-D and Doppler. Bun-shpp-jdnk areas of heterogeneity in the LEFT breast near 11-12 o'clock. Very similar to the prior study from 2019. There is no shadowing or increased vascularity. Findings are most consistent with n ormal fibroglandular breast tissue for young patient. US/US breast LT limited* [id number] IMPRESSION: BI-RADS: 2- Benign FOLLOW-UP: See Report Scattered heterogeneous background echotexture most consistent with normal fibr oglandular breast tissue. There is no mass.
== END 2024-01-13 09:45 | disposition home or self-care (01) ==
PROVIDERS: PCP Nurse Practitioner Family; Visit Provider Student in an Organized Health Care Education/Training Program
DX: N63.22 Unspecified lump in the left breast, upper inner quadrant (principal); R92.333 Mammographic heterogeneous density, bilateral breasts
CPT/HCPCS: 76642

== ENCOUNTER 2024-03-02 08:27 | Outpatient (CLI) | payer OTHER, SELFPAY ==
--- NOTE | 2024-03-02 08:28 | CT_ITS ---
WS: [id number] CT chest wo con [id number] HISTORY: CHEST WALL MASS TECHNIQUE: Axial imaging performed through the thorax. Coronal and sagittal reformats are submitted. All CT scans at [facility] use at least one of these dose optimization techniques: automated exposure control; mA and/or kV adjustment per patient size (includes targeted exams where dose is mat ched to clinical indication); or iterative reconstruction. CONTRAST: None DLP: 361.39 mGy.cm COMPARISON: LEFT breast ultrasound, limited 01/13/2024 Markers placed along the superior LEFT chest wall. There is no underlying mass identified. There is c lose association with fibroglandular breast tissue. Both breasts have very dense fibroglandular tissu e except as expected for the age of the patient. Lungs and central airway: Normal. Pleura: Normal. No pleural effusion. Heart and pericardium: Normal size heart with no pericardial effusion. Mediastinum and denys: No mediastinum or hilar adenopathy. Vessels: Normal size aortic and pulmonary artery. No coronary artery calcifications. Chest wall and lower neck: No soft tissue masses. Upper abdomen: Prior cholecystectomy. Visualized liver is normal. No adrenal abnormality. T12 hemangi stephanie. Osseous structures: No destructive process. CT/CT chest wo con [id number] IMPRESSION: 1. No chest wall mass identified. There is dense fibroglandular breast tissue adjacent to the marker along the upper chest wall. Dense fibroglandular tissue was also noted on the prior ultrasound from 01/13/2024. Clinically if this area continues to be of concern surgical removal may be an option. 2. Lungs are clear. No adenopathy. 3. Prior cholecystectomy.
== END 2024-03-02 08:28 | disposition home or self-care (01) ==
LOC: RAD 08:27
PROVIDERS: PCP Nurse Practitioner Family; Visit Provider Student in an Organized Health Care Education/Training Program
DX: R22.2 Localized swelling, mass and lump, trunk (principal); Z90.49 Acquired absence of other specified parts of digestive tract; R92.30 Dense breasts, unspecified
CPT/HCPCS: 71250

== ENCOUNTER 2024-04-16 06:00 | Outpatient (RCR) | payer OTHER, SELFPAY | END 2024-05-01 23:59 | disposition home or self-care (01) | LOC: SOT 06:00 | PROVIDERS: Visit Provider Orthopaedic Surgery | DX: G56.22 Lesion of ulnar nerve, left upper limb (principal) | CPT/HCPCS: 97110; 97165; 97530 ==

== ENCOUNTER 2024-05-02 06:30 | Outpatient (RCR) | payer OTHER, SELFPAY | END 2024-06-01 23:59 | disposition home or self-care (01) | LOC: SOT 06:30 | PROVIDERS: PCP Nurse Practitioner Family; Visit Provider Orthopaedic Surgery | DX: G56.22 Lesion of ulnar nerve, left upper limb (principal) | CPT/HCPCS: 97035; 97110; 97530 ==

== ENCOUNTER 2024-05-20 10:37 | Outpatient (CLI) | payer BC, SELFPAY ==
--- NOTE | 2024-05-20 10:44 | MRR_ITS ---
PROCEDURE INFORMATION: Exam: MR Left Upper Extremity Joint Without Contrast; Elbow Exam date and time: 05/20/2024 10:58 AM Age: 29 years old Clinical indication: Left; Prior surgery; Surgery date: 1-6 months; Surgery type: Ulnar nerve February 2024; PT states she had ulnar nerve transposition in February and is having elbow pain since; Additional info: Pain of left elbow joint TECHNIQUE: Imaging protocol: Magnetic resonance imaging of the left upper extremity without contrast. Exam focused on the elbow. COMPARISON: No relevant prior studies available. FINDINGS: Bones/joints: Normal alignment. No focal osseous lesion. No acute fracture. Intact articular cartilage. No significant joint effusion. Ulnar (medial) collateral ligament: Unremarkable. No tear. Radial collateral ligament of the elbow: Unremarkable. No tear. Annular ligament of the radius: Unremarkable. No tear. Tendon of the biceps brachii: Unremarkable. No tear. Tendon of the brachialis: Unremarkable. No tear. Triceps tendon: Unremarkable. No tear. Common flexor tendon: Mild intrasubstance abnormal increased signal intensity in the common flexor tendon is identified. Common extensor tendon: Unremarkable. No tear. Nerves: The ulnar nerve demonstrates mild intrasubstance abnormal increased signal intensity in his anteromedially displaced from the cubital tunnel, best demonstrated on series 501 between images 124. Soft tissues: Moderate subcutaneous edema along the medial aspect of the elbow is present. [id number]-[id number] edema is noted in the pronator teres, flexor carpi ulnaris flexor digitorum superficialis and palmaris longus muscles. MR/MR elbow LT wo con* [id number] IMPRESSION: 1. Moderate subcutaneous edema along the medial aspect of the elbow is noted, which may represent postoperative inflammatory changes related to the provided history of ulnar nerve transposition surgery. Contusion can also account for this appearance in the proper clinical setting. Infectious cellulitis can not be excluded, with no evidence of abscess. 2. Mild abnormal increased signal intensity in the transposed ulnar nerve is present, which can be physiologic in nature or related to inflammatory changes/neuropathy. 3. Edema in the pronator teres, flexor carpi ulnaris flexor digitorum superficialis and palmaris longus muscles can be related to postoperative inflammatory changes. Other etiologies can include neuropathic changes or myositis. 4. Mild common flexor tendinosis. 5. No acute osseous findings.
== END 2024-05-20 10:38 | disposition home or self-care (01) ==
LOC: RAD 10:39
PROVIDERS: PCP Nurse Practitioner Family; Visit Provider Orthopaedic Surgery
DX: M67.824 Other specified disorders of tendon, left elbow (principal); R93.6 Abnormal findings on diagnostic imaging of limbs
CPT/HCPCS: 73221

== ENCOUNTER 2024-06-26 17:09 | Outpatient (CLI) | payer OTHER, SELFPAY ==
[2024-06-26 20:13] LABS: Follicle Stimulating Hormone 4.1 mIU/mL; Luteinizing Hormone 11.1 mIU/mL (0.5-41.7); Thyroid Stimulating Hormone 1.88 uIU/mL (0.27-4.20)
[2024-06-26 20:47] LABS: Free T4 Free Thyroxine 1.14 ng/dL (0.82-1.77); T3 Free 2.8 PG/ML (2.0-4.4)
== END 2024-06-26 17:10 | disposition home or self-care (01) ==
LOC: LAB 17:13
PROVIDERS: PCP Nurse Practitioner Family; Visit Provider Obstetrics & Gynecology
DX: R53.83 Other fatigue (principal)
CPT/HCPCS: 36415; 83001; 83002; 84439; 84443; 84481

== ENCOUNTER 2024-06-30 13:45 | Outpatient (CLI) | payer OTHER, SELFPAY ==
[2024-06-30 14:42] LABS: Cortisol Random 7.08 ug/dL (2.47-19.5)
== END 2024-06-30 13:46 | disposition home or self-care (01) ==
LOC: LAB 13:47
PROVIDERS: PCP Nurse Practitioner Family; Visit Provider Internal Medicine
DX: Z91.018 Allergy to other foods (principal)
CPT/HCPCS: 36415; 82533

== ENCOUNTER 2024-07-13 15:45 | Outpatient (CLI) | payer OTHER, SELFPAY ==
[2024-07-13 16:43] LABS: Testosterone Total 17.5 ng/dL (8.4-48.1)
== END 2024-07-13 15:46 | disposition home or self-care (01) ==
PROVIDERS: PCP Nurse Practitioner Family; Visit Provider Internal Medicine
DX: E28.2 Polycystic ovarian syndrome (principal); E16.2 Hypoglycemia, unspecified
CPT/HCPCS: 36415; 84403

== ENCOUNTER 2025-02-01 15:41 | Outpatient (CLI) | payer OTHER, SELFPAY ==
--- NOTE | 2025-02-01 15:46 | US_ITS ---
WS: [id number] INDICATION: Cervical lymphadenopathy TECHNIQUE: Ultrasound soft tissue bilateral cervical chains FINDINGS: Ultrasound soft tissue bilateral cervical chains. No cervical lymphadenopathy visualized today. No suspicious cystic or solid lesions. US/US soft tissue head neck [id number] IMPRESSION: No suspicious findings.
== END 2025-02-01 15:42 | disposition home or self-care (01) ==
LOC: RAD 15:41
PROVIDERS: PCP Nurse Practitioner Family; Visit Provider Otolaryngology
DX: R51.9 Headache, unspecified (principal); R59.0 Localized enlarged lymph nodes
CPT/HCPCS: 76536